=== PATIENT | female | born 1930 | race Caucasian/White ===

== ENCOUNTER 2016-08-07 14:21 | Inpatient (IN) | payer MEDICARE ==
[~2016-08-07] VITALS: Ht 152.4 cm
[~2016-08-07 14:21] MED LIST: ACETAMINOPHEN325 MG PO; AMANTADINE100 MG PO; ANTIVERT12.5 MG PO; B-12500 MCG PO; LASIX20 MG PO; LEVOTHYROXINE112 MCG PO; LORTAB 5-325 M1 EACH PO; OMEPRAZOLE40 MG PO; PLAQUENIL200 MG PO; PRINIVIL5 MG PO; PROZAC20 MG PO; SENNA8.6 MG PO; SURFAK240 MG PO; TRAZODONE HCL100 MG PO; VESICARE10 MG PO; VISTARIL25 MG PO; ZYVOX600 MG PO
== END 2016-08-11 10:35 | disposition home health service (06) | DRG 194 ==
LOC: ER 14:21 → MED 17:52
PROVIDERS: ADMIT Internal Medicine
DX: J18.9 Pneumonia, unspecified organism (principal); I69.354 Hemiplegia and hemiparesis following cerebral infarction affecting left non-dominant side; I50.32 Chronic diastolic (congestive) heart failure; E87.0 Hyperosmolality and hypernatremia; R41.82 Altered mental status, unspecified; I69.320 Aphasia following cerebral infarction; I69.391 Dysphagia following cerebral infarction; R13.10 Dysphagia, unspecified; D64.9 Anemia, unspecified; I35.0 Nonrheumatic aortic (valve) stenosis; Z95.2 Presence of prosthetic heart valve; I11.0 Hypertensive heart disease with heart failure; E78.5 Hyperlipidemia, unspecified; M10.9 Gout, unspecified; K44.9 Diaphragmatic hernia without obstruction or gangrene; G43.909 Migraine, unspecified, not intractable, without status migrainosus; E03.9 Hypothyroidism, unspecified; I65.29 Occlusion and stenosis of unspecified carotid artery; G25.81 Restless legs syndrome; M48.00 Spinal stenosis, site unspecified; G47.30 Sleep apnea, unspecified; M32.9 Systemic lupus erythematosus, unspecified; Z86.14 Personal history of Methicillin resistant Staphylococcus aureus infection; K22.4 Dyskinesia of esophagus; G62.9 Polyneuropathy, unspecified; N32.81 Overactive bladder; F51.04 Psychophysiologic insomnia; R41.3 Other amnesia; Z90.710 Acquired absence of both cervix and uterus; Z96.653 Presence of artificial knee joint, bilateral; Z96.641 Presence of right artificial hip joint; Z79.82 Long term (current) use of aspirin; Z79.02 Long term (current) use of antithrombotics/antiplatelets; Z79.899 Other long term (current) drug therapy; Z88.5 Allergy status to narcotic agent; Z88.1 Allergy status to other antibiotic agents; Z88.8 Allergy status to other drugs, medicaments and biological substances; Z88.2 Allergy status to sulfonamides; Z82.49 Family history of ischemic heart disease and other diseases of the circulatory system; Z82.3 Family history of stroke; Z81.8 Family history of other mental and behavioral disorders; Z82.61 Family history of arthritis; Z84.89 Family history of other specified conditions; M25.512 Pain in left shoulder; R32 Unspecified urinary incontinence; Z66 Do not resuscitate
CPT/HCPCS: 36415; 70551; 92610; 97162-GP; 97166

== ENCOUNTER 2016-08-07 14:21 | Emergency (ER) | payer MEDICARE | END 2016-08-07 17:51 | disposition admitted as inpatient to this hospital (09) | LOC: ER 14:21 | DX: I63.9 Cerebral infarction, unspecified (principal); R47.1 Dysarthria and anarthria; J18.9 Pneumonia, unspecified organism; N28.9 Disorder of kidney and ureter, unspecified; I10 Essential (primary) hypertension; E78.00 Pure hypercholesterolemia, unspecified; E03.9 Hypothyroidism, unspecified; K21.9 Gastro-esophageal reflux disease without esophagitis; F32.9 Major depressive disorder, single episode, unspecified; F41.9 Anxiety disorder, unspecified; Z88.8 Allergy status to other drugs, medicaments and biological substances; Z79.899 Other long term (current) drug therapy; Z79.82 Long term (current) use of aspirin | CPT/HCPCS: 36415; 51701; 96361; 96365 ==